=== PATIENT | male | born 1945 | race Two or more races ===

== ENCOUNTER 2019-11-25 05:35 | Day surgery (SDC) | payer OTHER ==
[~2019-11-25 05:35] MED LIST: ATACAND16 MG PO; LIPITOR20 MG PO; TOPROL XL100 M1 PO; UNITHROID50 MCG PO; XARELTO10 MG PO
[2019-11-25] MEDS ORDERED: RECTICARE30 GM TOP (08:40)
[2019-11-25] MEDS ORDERED: PERCOCET 5-3251 EACH PO (08:40)
[2019-11-25] MEDS ORDERED: POLY119PG PO (08:41)
== END 2019-11-25 14:25 | disposition home or self-care (01) ==
LOC: CIR.AMB 05:35
DX: C20 Malignant neoplasm of rectum (principal); K60.1 Chronic anal fissure